=== PATIENT | female | born 1960 | race African-American/Black ===

== ENCOUNTER 2019-07-08 10:13 | Outpatient (CLI) | payer OTHER ==
--- NOTE | 2019-07-08 11:48 | MRI ---
EXAM: MRI right wrist PROVIDED CLINICAL HISTORY: Pain COMPARISON: None FINDINGS: The dorsal extensor and volar flexor tendons demonstrate an intact MR appearance. The TFC complex, scapholunate ligament and lunotriquetral ligaments are suboptimally evaluated in the absence of joint distention but appear grossly normal. The amount of fluid within the distal radioulnar joint, midcarpal joint and radiocarpal joint is phys iologic. No focal concerning regional marrow or muscular signal abnormality is evident. The courses of the regional major neurovascular structures appear unremarkable. IMPRESSION: No evidence for internal derangement.
== END 2019-07-08 10:14 | disposition home or self-care (01) ==
LOC: SCSMRI 10:13
PROVIDERS: ATTEND Orthopaedic Surgery Hand Surgery
DX: G56.03 Carpal tunnel syndrome, bilateral upper limbs (principal)

== ENCOUNTER 2019-09-23 15:56 | Outpatient (CLI) | payer OTHER ==
--- NOTE | 2019-09-23 16:31 | CT ---
CT Upper Ext Rt W Con: 09/23/2019 12:00 AM CLINICAL HISTORY: 59-year-old female with history of right hand pain and right wrist pain after a wri st injury a few months ago. Patient reports inability to straighten her small digit.. IMAGING TECHNIQUE: Multiple CT images were obtained right wrist without IV contrast. COMPARISON: Right hand radiograph dated June 04, 2019 and right wrist MR examination dated July 08, 2019 FINDINGS: No acute fracture or subluxation is evident. Carpal alignment appears within normal limits. Bone mine ralization appears within normal limits. The distal radius and ulna appear within normal limits. The proximal metacarpals of the right hand appear within normal limits. Soft tissues appear within no rmal limits. IMPRESSION: No acute osseous abnormality.
== END 2019-09-23 15:57 | disposition home or self-care (01) ==
LOC: BICCT 15:56
PROVIDERS: ATTEND Orthopaedic Surgery Hand Surgery
DX: S63.591A Other specified sprain of right wrist, initial encounter (principal)